=== PATIENT | male | born 1965 | race Caucasian/White ===

== ENCOUNTER 2019-12-17 09:41 | Emergency (ER) | payer MEDICARE, MEDICAID ==
[~2019-12-17] VITALS: Ht 193 cm; Wt 64.0 kg
[~2019-12-17 09:41] MED LIST: AMLO10TA8 PO; DULO60CA7 PO; FOLI-17 PO; GABA-827 PO; HYDR2TAB29 PO; INSU100V8 SQ; LIPA1CAP PO; OMEP40CA42 PO; ONDA4TAB13 SL
--- NOTE | 2019-12-17 09:41 | NUR ---
PATIENT BIB [facility] WITH C/O GENERALIZED ABD PAIN, N/V AND DIZZINESS X12 HOURS. PATIENT WAS HOSPITALIZED RECENTLY AND HAD A STENT REMOVAL AND REPLACEMENT BETWEEN THE PANCREAS AND STOMACH 12/16/2019. PATIENT DISCHARGED YESTERDAY AND ATE A SMALL MEAL AFTER WHICH HE STARTED EXPERIENCING ABD PAIN 12/16/2019 AROUND 7 PM. EN ROUTE TO THE HOSPITAL PATIENT WAS GIVEN 250 NS, 100 MCG FENTANYL, AND 4 MG ZOFRAN BY EMS. PATIENT STATES HIS PAIN LEVEL NOW IS A 4/10, DOES NOT APPEAR TO BE ANY DISTRESS. PATIENT A&OX4, VITAL SIGNS WNL, NO FURTHER COMPLAINTS.
--- NOTE | 2019-12-17 10:18 | NUR ---
U/S TECH IN ROOM.
[2019-12-17 10:56] LABS: BASOPHILS # (AUTO) 0.03 x10^3/uL (0-0.1); BASOPHILS % (AUTO) 0 % (0-1); EOSINOPHILS % (AUTO) 0 % (1-7); LYMPHOCYTES # (AUTO) 1.12 x10^3/uL (1-3.4); LYMPHOCYTES % (AUTO) 10 % (22-44); MD NO; MEAN CORPUSCULAR HEMOGLOBIN 27.8 pg (27.5-34.5); MEAN CORPUSCULAR HGB CONC 32.2 g/dL (33.2-36.2); MEAN CORPUSCULAR VOLUME 86.1 fL (81-97); MONOCYTES # (AUTO) 0.23 x10^3/uL (0.2-0.8); MONOCYTES % (AUTO) 2 % (2-9); NEUTROPHILS # (AUTO) 9.83 x10^3/uL (1.8-6.8); NEUTROPHILS % (AUTO) 88 % (42-75); PLATELET COUNT 377 x10^3/uL (130-400); RED BLOOD COUNT 4.74 x10^6/uL (4.38-5.82); RED CELL DISTRIBUTION WIDTH 17.7 % (9.4-14.8)
[2019-12-17] MEDS ORDERED: ONDANSETRON 2MG/ML, 2ML IVPush ONE (11:00)
[2019-12-17] MEDS ORDERED: HYDROmorphone 1 MG/ML, 1ML INJ ONE ×3 (11:00→16:23)
[2019-12-17] MEDS ORDERED: ONDANSETRON 2MG/ML, 2ML ONE (11:00)
[2019-12-17] MEDS ORDERED: SODIUM CHLORIDE FLUSH 10ML SYR IVF ONE (11:00)
[2019-12-17] MEDS: HYDROmorphone 2 MG/ML, 1ML IVPush PRN ×2 (11:03→13:37)
--- NOTE | 2019-12-17 11:07 | NUR ---
PATIENT C/O 10/21 ABD PAIN, MEDICATED WITH 4 MG IV ZOFRAN AND 0.5 MG IV DILAUDID. EXPLAINED NEED FOR URINE SAMPLE. NO FURTHER NEEDS AT THIS TIME.
[2019-12-17 11:12] LABS: ALANINE AMINOTRANSFERASE 41 U/L (12-78); ALBUMIN 3.2 g/dL (3.4-5.0); ANION GAP 13 mmol/L (5-15); CALCIUM 8.7 mg/dL (8.5-10.1); CHLORIDE 103 mmol/L (98-107); CREATININE 0.68 mg/dL (0.7-1.3)
[2019-12-17 11:15] LABS: ALKALINE PHOSPHATASE 320 U/L (45-117); BILIRUBIN,TOTAL 0.7 mg/dL (0.2-1.0); TOTAL PROTEIN 6.8 g/dL (6.4-8.2)
[2019-12-17] MEDS ORDERED: OMNIPAQUE 350 MG/ML, 100ML BOTTLE ONE (12:01)
--- NOTE | 2019-12-17 12:25 | NUR ---
BREAK RN: PT RESTING ON GURNEY. NADN. VSS. PT AWARE OF NEED FOR UA. URINAL LEFT W/ PT.
--- NOTE | 2019-12-17 12:34 | NUR ---
BREAK RN: DIEGO COLLECTED, LABELED, AND SENT TO LAB.
[2019-12-17 12:44] LABS: MICROSCOPIC INDICATED
--- NOTE | 2019-12-17 13:43 | NUR ---
PT MEDICATED WITH DILAUDID. WILL CONTINUE TO MONITOR.
[2019-12-17] MEDS ORDERED: SODIUM CHLORIDE 0.9% 1,000 ML IV ONE (16:27)
[2019-12-17] MEDS ORDERED: SODIUM CHLORIDE 0.9% 1,000ML IVBOLUS ONE (16:30)
[2019-12-17] MEDS ORDERED: HYDROmorphone 2 MG/ML, 1ML IVPush PRN (16:30)
--- NOTE | 2019-12-17 16:34 | NUR ---
PATIENT WAS REQUESTING MORE PAIN MEDS. DR. CMINTOSH NOTIFIED. PT MEDICATED PER JUL. PT WAS COMPLAINING OF THIRST AND ASKING ABOUT IV FLUID. DR. MCINTOSH NOTIFIED. NS BOLUS STARTED.
[2019-12-17 17:59] VITALS: BP 148/96
--- NOTE | 2019-12-17 18:12 | NUR ---
Patient and significant other given discharge instructions and they have confirmed that they understand the instructions. Patient wheeled out in stable condition by this RN to vehicle.
== END 2019-12-17 18:06 ==
LOC: ED 09:45
DX: R10.11 Right upper quadrant pain (principal); R10.13 Epigastric pain; R11.2 Nausea with vomiting, unspecified; R50.9 Fever, unspecified
CPT/HCPCS: 36415; 74177; 75989; 76700; 80053; 81001; 83690; 85025; 96361; 96374; 96375; 96376; 99285; J1170; J2405; J7030; Q9967

== ENCOUNTER 2019-12-18 07:38 | Inpatient (IN) | payer MEDICARE, MEDICAID ==
[~2019-12-18] VITALS: Ht 193 cm; Wt 76.1 kg
--- NOTE | 2019-12-18 07:41 | NUR ---
PATIENT BIB [facility] FOR ABD PAIN AND N/V SINCE LAST NIGHT. PATIENT WAS IN ED YESTERDAY FOR THE SAME ISSUE WHICH STARTED AFTER A STENT REMOVAL AND REPLACEMENT 12/16/2019. PATIENT STATES AFTER BEING DISCHARGED YESTERDAY HE WENT HOME AND TRIED TO DRINK SOME FLUIDS AND GOT SICK. HE WAS UP ALL NIGHT "DRY HEAVING." EN ROUTE TO HOSPITAL EMS GAVE 550 MLS OF NS, 4 MG IV ZOFRAN AND 4 MG IV MORPHINE. PATIENT'S BLOOD GLUCOSE WAS 438 IN THE AMBULANCE. PER PATIENT HE HASN'T BEEN ABLE TO TAKE HIS INSULIN FOR SEVERAL DAYS. PATIENT IS A&OX4, STATES HIS PAIN LEVEL NOW IS 4/10, HE STATES HE WANTS TO HOLD OFF ON PAIN MEDICINE RIGHT NOW. SPOUSE AT BEDSIDE.
[2019-12-18] MEDS ORDERED: SODIUM CHLORIDE 0.9% 1,000 ML IV ONE ×2 (07:53→11:00)
[2019-12-18] MEDS ORDERED: ONDANSETRON 2MG/ML, 2ML ONE (08:00)
[2019-12-18] MEDS ORDERED: SODIUM CHLORIDE 0.9% 1,000ML IVBOLUS ONE ×3 (08:00→10:00)
[2019-12-18] MEDS ORDERED: PLEASE ENTER HEIGHT AND WEIGHT MC SCH (08:00)
[2019-12-18] MEDS ORDERED: SODIUM CHLORIDE FLUSH 10ML SYR IVF ONE (08:00)
[2019-12-18] MEDS ORDERED: ONDANSETRON 2MG/ML, 2ML IVPush ONE (08:00)
[2019-12-18] MEDS ORDERED: HYDROmorphone 1 MG/ML, 1ML INJ ONE ×3 (08:04→17:27)
[2019-12-18] MEDS: HYDROmorphone 1 MG/ML, 1ML INJ IVPush PRN ×2 (08:05→20:50)
--- NOTE | 2019-12-18 08:14 | NUR ---
1000 mL bolus started, and patient medicated per eMAR. Instructed patient on need for urine sample.
[2019-12-18 08:24] LABS: ACETONE, SERUM Large (80mg/dL) (Negative)
[2019-12-18 08:28] LABS: ALANINE AMINOTRANSFERASE 40 U/L (12-78); ALBUMIN 3.3 g/dL (3.4-5.0); ANION GAP 19 mmol/L (5-15); CALCIUM 8.6 mg/dL (8.5-10.1); CHLORIDE 107 mmol/L (98-107); CREATININE 0.95 mg/dL (0.7-1.3)
[2019-12-18 08:31] LABS: ALKALINE PHOSPHATASE 297 U/L (45-117); BILIRUBIN,TOTAL 0.7 mg/dL (0.2-1.0)
[2019-12-18 08:36] LABS: MD YES; MEAN CORPUSCULAR HEMOGLOBIN 28.1 pg (27.5-34.5); MEAN CORPUSCULAR HGB CONC 32.2 g/dL (33.2-36.2); MEAN CORPUSCULAR VOLUME 87.2 fL (81-97); MEAN PLATELET VOLUME 8.9 fL (7.4-10.4); PLATELET COUNT 335 x10^3/uL (130-400); RED BLOOD COUNT 5.02 x10^6/uL (4.38-5.82); RED CELL DISTRIBUTION WIDTH 17.5 % (9.4-14.8)
[2019-12-18 08:37] LABS: BAND#(MANUAL) 0.66 x10^3/uL; BANDS%(MANUAL) 2 % (0-7); LYMPH#(MANUAL) 0.33 x10^3/uL (1-3.4); LYMPHS% (MANUAL) 1 % (22-44); MONOS#(MANUAL) 0.99 x10^3/uL (0.3-2.7); MONOS% (MANUAL) 3 % (2-9); SEG#(MANUAL) 31.11 x10^3/uL (1.8-6.8); SEGS% (MANUAL) 94 % (42-75)
[2019-12-18 08:38] LABS: <PLATELET ESTIMATE> ADEQUATE; <PLT MORPHOLOGY> NORMAL PLT MORPH; <RBC MORPHOLOGY> NORMAL
--- NOTE | 2019-12-18 08:58 | NUR ---
URINE SAMPLE COLLECTED AND SENT, PATIENT STATES PAIN LEVEL IS 4/10. NO FURTHER NEEDS AT THIS TIME.
[2019-12-18] MEDS ORDERED: METRONIDAZOLE PMX 500MG/100ML 100 ML IVPB ONE (09:00)
[2019-12-18] MEDS ORDERED: CEFEPIME 2 GM in DEXTROSE 5% 100 ML IVPB ONE (09:00)
[2019-12-18] MEDS ORDERED: METRONIDAZOLE PMX 500MG/100ML 100 ML ONE (09:18)
--- NOTE | 2019-12-18 09:20 | NUR ---
BLOOD CULTURES DRAWN BY LAB, ABX STARTED AFTER COLLECTION.
[2019-12-18 09:22] LABS: MICROSCOPIC AUTO
--- NOTE | 2019-12-18 09:44 | NUR ---
Pt to imaging
[2019-12-18] MEDS ORDERED: OMNIPAQUE 350 MG/ML, 100ML BOTTLE ONE (09:59)
[2019-12-18] MEDS ORDERED: INSULIN REGULAR 100 UNITS/ML, 3ML VIAL SQ-INSULIN ONE ×2 (10:00→10:30)
[2019-12-18] MEDS ORDERED: INSULIN SINGLE DOSE, ER ONE ×2 (10:02→10:04)
--- NOTE | 2019-12-18 10:06 | NUR ---
PATIENT RESTING COMFORTABLY IN BED, VITAL SIGNS WITHIN NORMAL LIMITS. SECOND 1L BOLUS STARTED.
--- NOTE | 2019-12-18 10:23 | NUR ---
INSULIN REQUESTED FROM PHARMACY.
--- NOTE | 2019-12-18 11:02 | NUR ---
DR. STEVEN AT BEDSIDE FOR EVALUATION.
[2019-12-18 11:11] LABS: TROPONIN I < 0.015 ng/mL (0.000-0.045)
[2019-12-18] MEDS: SODIUM CHLORIDE 0.9% 1,000 ML IV SCH ×3 (11:13→21:13)
[2019-12-18] MEDS ORDERED: ONDANSETRON ODT 4 MG PO PRN (11:30)
[2019-12-18] MEDS ORDERED: DEXTROSE 50%, 50ML SYRINGE IVPush PRN (11:30)
[2019-12-18] MEDS ORDERED: LABETALOL 5MG/ML, 20ML IVPush PRN (11:30)
[2019-12-18] MEDS ORDERED: hydrALAzine 20 MG/ML, 1ML IVPush PRN (11:30)
[2019-12-18] MEDS ORDERED: DEXTROSE 4 GM TAB.CHEW PO PRN (11:30)
[2019-12-18] MEDS ORDERED: METOCLOPRAMIDE 5 MG/ML, 2ML IV PRN (11:30)
[2019-12-18] MEDS ORDERED: SODIUM CHLORIDE FLUSH 10ML SYR IVF PRN (11:30)
[2019-12-18] MEDS ORDERED: GLUCAGON 1 MG IM PRN (11:30)
[2019-12-18] MEDS ORDERED: OXYcodone IR 5MG TABLET PO PRN (11:30)
[2019-12-18] MEDS ORDERED: ENOXAPARIN 40 MG/0.4 ML ONE (11:34)
[2019-12-18 12:00] LABS: ANION GAP 15 mmol/L (5-15); CALCIUM 8.2 mg/dL (8.5-10.1); CHLORIDE 112 mmol/L (98-107); CREATININE 1.01 mg/dL (0.7-1.3)
[2019-12-18] MEDS ORDERED: NICOTINE 14MG/24 HR PATCH.TD24 ONE (12:15)
[2019-12-18] MEDS: NICOTINE 14MG/24 HR PATCH.TD24 TD SCH (12:18)
[2019-12-18] MEDS: ENOXAPARIN 40 MG/0.4 ML SQ SCH (12:18)
[2019-12-18] MEDS: MEROPENEM 1 GM in SODIUM CHLORIDE 0.9% 100 ML IV SCH ×2 (12:27→23:07)
--- NOTE | 2019-12-18 12:42 | NUR ---
2ND IV STARTED, PATIENT RESTING IN GURNEY, NO C/O PAIN AT THIS TIME.
[2019-12-18] MEDS: REGULAR INSULIN 100 UNITS in SODIUM CHLORIDE 0.9% 99 ML IV PRN ×5 (13:15→18:37)
--- NOTE | 2019-12-18 13:15 | NUR ---
INSULIN DRIP STARTED AT 2 UNITS/HR PER PROTOCOL. NEXT GLUCOSE CHECK AT 1415.
[2019-12-18] MEDS: HYDROmorphone 2 MG/ML, 1ML IVPush PRN ×2 (14:05→17:33)
--- NOTE | 2019-12-18 14:06 | NUR ---
Note undone in [facility] - 12/18/19 at 1426 by [email or web address] PATIENT C/O 09/20 ABD PAIN, MEDICATED PER eMAR. POC BLOOD GLUCOSE IS 270. INSULIN DRIP TITRATED PER PROTOCOL. Addendum: 12/18/19 at 1423 by [email or web address] Amendment undone in [facility] - 12/18/19 at 1426 by [email or web address] NO TITRATION NEEDED ON INSULIN DRIP, CONTINUE RUNNING AT 2 UNITS/HR PER PROTOCOL.
--- NOTE | 2019-12-18 15:28 | NUR ---
POC GLUCOSE IS 213, PER PROTOCOL INSULIN DRIP TITRATED UP 1 UNIT. INUSLIN DRIP NOW RUNNING AT 4 UNITS/HR.
[2019-12-18 15:34] LABS: ANION GAP 8 mmol/L (5-15); CALCIUM 7.8 mg/dL (8.5-10.1); CHLORIDE 113 mmol/L (98-107); CREATININE 0.79 mg/dL (0.7-1.3)
[2019-12-18 15:39] LABS: TROPONIN I < 0.015 ng/mL (0.000-0.045)
[2019-12-18] MEDS ORDERED: GABAPENTIN 400 MG CAPSULE PO SCH (16:00)
--- NOTE | 2019-12-18 16:37 | NUR ---
PATIENT'S POC GLUCOSE 181, PER INSULIN PROTOCOL NO CHANGE TO BE MADE TO DRIP AT THIS TIME. INSULIN DRIP TO STAY AT CURRENT 4 UNITS/HR RATE, NEXT POC GLUCOSE AT 1730. PATIENT STATES PAIN LEVEL IS AT 3/10.
[2019-12-18] MEDS ORDERED: GABAPENTIN 300 MG CAPSULE ONE ×2 (16:43→20:31)
--- NOTE | 2019-12-18 16:43 | NUR ---
hospital bed requested for patient comfort.
--- NOTE | 2019-12-18 16:43 | NUR ---
Fluids requested from pharmacy.
[2019-12-18] MEDS ORDERED: GABAPENTIN 300 MG CAPSULE PO SCH (17:04)
[2019-12-18] MEDS: D5%-0.45NACL+KCL 20MEQ 1,000 ML IV SCH ×2 (17:13→19:13)
--- NOTE | 2019-12-18 17:16 | NUR ---
PATIENT'S GLUCOSE LESS THAN 200, PER PROTOCOL NS STOPPED AND D5+1/2NS+20mEq KCL HUNG AT 125mLs/hr.
--- NOTE | 2019-12-18 18:38 | NUR ---
Patient's pain level down to 3/10. Insulin drip titrated down to 1 unit/hr due to blood glucose of 100. No further needs at this time.
[2019-12-18 19:37] LABS: ANION GAP 6 mmol/L (5-15); CALCIUM 8.5 mg/dL (8.5-10.1); CHLORIDE 115 mmol/L (98-107); CREATININE 0.74 mg/dL (0.7-1.3)
[2019-12-18] MEDS ORDERED: PANTOPRAZOLE 40 MG IV ONE (20:31)
[2019-12-18] MEDS: GABAPENTIN 300 MG CAPSULE PO SCH (20:42)
[2019-12-18] MEDS: PANTOPRAZOLE 40 MG IV IVPush SCH (20:42)
--- NOTE | 2019-12-18 20:42 | NUR ---
DREW CALLED AND REQUESTING UPDATE. [phone]
[2019-12-18] MEDS ORDERED: HYDROmorphone 2 MG/ML, 1ML ONE (20:45)
[2019-12-18] MEDS: SODIUM CHLORIDE FLUSH 10ML SYR IVF SCH (21:00)
[2019-12-18 22:22] LABS: ANION GAP 6 mmol/L (5-15); CALCIUM 7.9 mg/dL (8.5-10.1); CHLORIDE 113 mmol/L (98-107); CREATININE 0.61 mg/dL (0.7-1.3)
[2019-12-18 22:25] LABS: TROPONIN I < 0.015 ng/mL (0.000-0.045)
--- NOTE | 2019-12-18 22:29 | NUR ---
POSITIVE BLOOD CULTURE ANEORBIC BOTTLE GRAM NEG ROBS BOTH SETS,
--- NOTE | 2019-12-18 22:35 | NUR ---
Hospitalist aware of positive blood cultures and chart reviewed, continue with abx
--- NOTE | 2019-12-18 22:58 | NUR ---
3RD IV STARTED FOR IV ABX
[2019-12-19] MEDS: HYDROmorphone 2 MG/ML, 1ML IVPush PRN ×6 (00:15→20:56)
[2019-12-19 01:07] VITALS: BP 160/97
[2019-12-19] MEDS: D5%-0.45NACL+KCL 20MEQ 1,000 ML IV SCH (01:26)
[2019-12-19] MEDS: SODIUM CHLORIDE 0.9% 1,000 ML IV SCH (01:27)
[2019-12-19 04:00] VITALS: BP 154/92
[2019-12-19 04:52] LABS: ANION GAP 7 mmol/L (5-15); CALCIUM 7.9 mg/dL (8.5-10.1); CHLORIDE 112 mmol/L (98-107)
[2019-12-19] MEDS: MEROPENEM 1 GM in SODIUM CHLORIDE 0.9% 100 ML IV SCH ×3 (04:56→20:56)
[2019-12-19 05:24] LABS: BASOPHILS # (AUTO) 0.02 x10^3/uL (0-0.1); BASOPHILS % (AUTO) 0 % (0-1); EOSINOPHILS # (AUTO) 0.31 x10^3/uL (0-0.4); EOSINOPHILS % (AUTO) 2 % (1-7); LYMPHOCYTES % (AUTO) 8 % (22-44); MD NO; MEAN CORPUSCULAR VOLUME 87.4 fL (81-97); MEAN PLATELET VOLUME 8.4 fL (7.4-10.4); MONOCYTES # (AUTO) 0.76 x10^3/uL (0.2-0.8); MONOCYTES % (AUTO) 5 % (2-9); NEUTROPHILS # (AUTO) 13.13 x10^3/uL (1.8-6.8); NEUTROPHILS % (AUTO) 85 % (42-75); PLATELET COUNT 232 x10^3/uL (130-400); RED BLOOD COUNT 4.69 x10^6/uL (4.38-5.82); RED CELL DISTRIBUTION WIDTH 17.5 % (9.4-14.8)
[2019-12-19] MEDS: PANTOPRAZOLE 40 MG IV IVPush SCH ×2 (07:52→20:56)
[2019-12-19] MEDS: GABAPENTIN 300 MG CAPSULE PO SCH ×3 (07:52→20:57)
[2019-12-19] MEDS: DULOXETINE 30 MG CAPSULE.DR PO SCH (07:52)
[2019-12-19] MEDS: FOLIC ACID 1 MG TABLET PO SCH (07:52)
[2019-12-19] MEDS: AMLODIPINE 10 MG TAB PO SCH (07:52)
[2019-12-19] MEDS: SODIUM CHLORIDE FLUSH 10ML SYR IVF SCH ×2 (07:53→20:58)
[2019-12-19] MEDS ORDERED: INSULIN GLARGINE 100 UNITS/ML, PEN SQ-INSULIN ONE ×2 (08:30)
[2019-12-19 08:53] LABS: ANION GAP 6 mmol/L (5-15); CALCIUM 8.3 mg/dL (8.5-10.1); CHLORIDE 109 mmol/L (98-107); CREATININE 0.54 mg/dL (0.7-1.3)
[2019-12-19] MEDS ORDERED: INSULIN LISPRO 100 UNIT/ML, 3ML VIAL SQ-INSULIN SCH (11:00)
[2019-12-19] MEDS: PANCRELIPASE 24,000 CAPSULE.DR PO SCH ×2 (11:32→17:12)
[2019-12-19] MEDS: ENOXAPARIN 40 MG/0.4 ML SQ SCH (11:32)
[2019-12-19] MEDS: INSULIN LISPRO 100 UNITS/ML, PEN SQ-INSULIN SCH ×4 (11:32→20:57)
[2019-12-19] MEDS: NICOTINE 14MG/24 HR PATCH.TD24 TD SCH (11:39)
[2019-12-19 12:19] LABS: ANION GAP 9 mmol/L (5-15); CALCIUM 8.6 mg/dL (8.5-10.1); CHLORIDE 107 mmol/L (98-107)
[2019-12-19 12:20] LABS: CREATININE 0.45 mg/dL (0.7-1.3)
[2019-12-19 14:48] VITALS: BP 130/83
[2019-12-19 19:10] VITALS: BP 157/90
[2019-12-19] MEDS: INSULIN GLARGINE 100 UNITS/ML, PEN SQ-INSULIN SCH (20:58)
[2019-12-20 00:09] VITALS: BP 128/86
[2019-12-20] MEDS: HYDROmorphone 2 MG/ML, 1ML IVPush PRN ×5 (01:29→20:06)
[2019-12-20] MEDS: MEROPENEM 1 GM in SODIUM CHLORIDE 0.9% 100 ML IV SCH ×3 (04:13→20:05)
[2019-12-20 04:51] LABS: BASOPHILS # (AUTO) 0.03 x10^3/uL (0-0.1); BASOPHILS % (AUTO) 0 % (0-1); EOSINOPHILS # (AUTO) 0.19 x10^3/uL (0-0.4); EOSINOPHILS % (AUTO) 2 % (1-7); LYMPHOCYTES # (AUTO) 1.26 x10^3/uL (1-3.4); LYMPHOCYTES % (AUTO) 13 % (22-44); MD NO; MEAN CORPUSCULAR HEMOGLOBIN 27.8 pg (27.5-34.5); MEAN CORPUSCULAR HGB CONC 32.1 g/dL (33.2-36.2); MEAN CORPUSCULAR VOLUME 86.7 fL (81-97); MEAN PLATELET VOLUME 7.9 fL (7.4-10.4); MONOCYTES # (AUTO) 0.57 x10^3/uL (0.2-0.8); MONOCYTES % (AUTO) 6 % (2-9); NEUTROPHILS # (AUTO) 7.72 x10^3/uL (1.8-6.8); NEUTROPHILS % (AUTO) 79 % (42-75); PLATELET COUNT 245 x10^3/uL (130-400); RED CELL DISTRIBUTION WIDTH 17.8 % (9.4-14.8)
[2019-12-20 04:58] LABS: ALANINE AMINOTRANSFERASE 30 U/L (12-78); ALBUMIN 2.9 g/dL (3.4-5.0); ANION GAP 7 mmol/L (5-15); CALCIUM 8.4 mg/dL (8.5-10.1); CHLORIDE 106 mmol/L (98-107); CREATININE 0.44 mg/dL (0.7-1.3)
[2019-12-20 05:00] LABS: ALKALINE PHOSPHATASE 237 U/L (45-117); BILIRUBIN,TOTAL 0.4 mg/dL (0.2-1.0); TOTAL PROTEIN 6.3 g/dL (6.4-8.2)
[2019-12-20] MEDS: DULOXETINE 30 MG CAPSULE.DR PO SCH (07:41)
[2019-12-20] MEDS: AMLODIPINE 10 MG TAB PO SCH (07:41)
[2019-12-20] MEDS: GABAPENTIN 300 MG CAPSULE PO SCH ×3 (07:41→20:05)
[2019-12-20] MEDS: PANTOPRAZOLE 40 MG IV IVPush SCH ×2 (07:41→20:05)
[2019-12-20] MEDS: PANCRELIPASE 24,000 CAPSULE.DR PO SCH ×3 (07:41→15:49)
[2019-12-20] MEDS: FOLIC ACID 1 MG TABLET PO SCH (07:41)
[2019-12-20] MEDS: SODIUM CHLORIDE FLUSH 10ML SYR IVF SCH ×2 (07:42→20:53)
[2019-12-20] MEDS: INSULIN LISPRO 100 UNITS/ML, PEN SQ-INSULIN SCH ×7 (07:42→20:06)
[2019-12-20] MEDS: INSULIN GLARGINE 100 UNITS/ML, PEN SQ-INSULIN SCH ×2 (07:45→20:06)
[2019-12-20 09:27] VITALS: BP 135/86
[2019-12-20] MEDS: NICOTINE 14MG/24 HR PATCH.TD24 TD SCH (12:14)
[2019-12-20] MEDS: ENOXAPARIN 40 MG/0.4 ML SQ SCH (12:14)
[2019-12-20 15:30] VITALS: BP 121/86
[2019-12-20 18:55] VITALS: BP 128/86
[2019-12-21 00:13] VITALS: BP 123/90
[2019-12-21] MEDS: HYDROmorphone 2 MG/ML, 1ML IVPush PRN ×3 (00:18→10:03)
[2019-12-21] MEDS: MEROPENEM 1 GM in SODIUM CHLORIDE 0.9% 100 ML IV SCH (04:09)
[2019-12-21 06:55] VITALS: BP 129/88
[2019-12-21] MEDS: INSULIN GLARGINE 100 UNITS/ML, PEN SQ-INSULIN SCH (08:24)
[2019-12-21] MEDS: INSULIN LISPRO 100 UNITS/ML, PEN SQ-INSULIN SCH ×4 (08:24→11:56)
[2019-12-21] MEDS: PANTOPRAZOLE 40 MG IV IVPush SCH (08:30)
[2019-12-21] MEDS: SODIUM CHLORIDE FLUSH 10ML SYR IVF SCH (08:31)
[2019-12-21] MEDS: FOLIC ACID 1 MG TABLET PO SCH (08:31)
[2019-12-21] MEDS: DULOXETINE 30 MG CAPSULE.DR PO SCH (08:31)
[2019-12-21] MEDS: AMLODIPINE 10 MG TAB PO SCH (08:31)
[2019-12-21] MEDS: GABAPENTIN 300 MG CAPSULE PO SCH (08:31)
[2019-12-21] MEDS: PANCRELIPASE 24,000 CAPSULE.DR PO SCH ×2 (08:34→11:28)
[2019-12-21] MEDS ORDERED: NICO-486 TD (10:43)
[2019-12-21] MEDS ORDERED: LEVO750T26 PO (11:20)
== END 2019-12-21 12:25 | disposition home or self-care (01) | DRG 638 ==
LOC: ED 08:03 → EDIP 11:47 → CCU 23:56 → 3N 12-19 13:07
PROVIDERS: ADMIT Hospitalist; ATTEND Internal Medicine
DX: E11.10 Type 2 diabetes mellitus with ketoacidosis without coma (principal); R64 Cachexia; K86.1 Other chronic pancreatitis; N13.30 Unspecified hydronephrosis; I10 Essential (primary) hypertension; G89.29 Other chronic pain; F12.90 Cannabis use, unspecified, uncomplicated; M54.9 Dorsalgia, unspecified; E11.42 Type 2 diabetes mellitus with diabetic polyneuropathy; B96.20 Unspecified Escherichia coli [E. coli] as the cause of diseases classified elsewhere; F17.210 Nicotine dependence, cigarettes, uncomplicated; K74.60 Unspecified cirrhosis of liver; Z68.20 Body mass index [BMI] 20.0-20.9, adult; Z88.0 Allergy status to penicillin; Z90.49 Acquired absence of other specified parts of digestive tract; Z79.4 Long term (current) use of insulin; Z79.82 Long term (current) use of aspirin; Z79.899 Other long term (current) drug therapy; Z83.3 Family history of diabetes mellitus
CPT/HCPCS: 36415; 71045; 74177; 80048; 80053; 81001; 82010; 82800; 82962; 83605; 83690; 83735; 84100; 84484; 85025; 87040; 87077; 87081; 87186; 93005; 99291; G0378; J1170; J1650; J1815; J2185; J2405; Q9967; C9113; J1817; J3480; J7030

== ENCOUNTER 2020-07-20 10:58 | Day surgery (SDC) | payer MEDICARE, MEDICAID ==
[~2020-07-20] VITALS: Ht 193 cm; Wt 78.0 kg
[~2020-07-20 10:58] MED LIST changes: +AMLO-211 PO; -AMLO10TA8 PO; +CYAN-27 PO; -FOLI-17 PO; +FOLI1TAB32 PO; +GABA600T7 PO; +INSU100I11 SC; +LEVO750T26 PO; +LIPA1CAP45 PO; +NICO-486 TD; +PROC10TA2 PO; +THIA100T27 PO; +magnesium PO
[2020-07-20 11:24] VITALS: BP 158/93
[2020-07-20] MEDS ORDERED: CHLORHEXIDINE 15 ML UDC MM ONE (11:30)
[2020-07-20] MEDS ORDERED: INSULIN REGULAR 100 UNITS/ML, 3ML VIAL SQ-INSULIN STA (11:43)
[2020-07-20] MEDS ORDERED: INSULIN SINGLE DOSE, ER ONE ×2 (11:49→12:36)
[2020-07-20] MEDS ORDERED: LACTATED RINGERS 1,000 ML IV SCH (12:00)
[2020-07-20] MEDS ORDERED: FENTANYL PF 250 MCG/5ML ONE (12:37)
[2020-07-20] MEDS ORDERED: PROPOFOL 10 MG/ML, 20ML ONE (13:02)
[2020-07-20] MEDS ORDERED: ROCURONIUM 10MG/ML,5ML ONE (13:02)
[2020-07-20] MEDS ORDERED: GLYCOPYRROLATE 0.2MG/1ML, 5ML ONE (13:02)
[2020-07-20] MEDS ORDERED: NEOSTIGMINE 1 MG/ML, 10ML ONE (13:02)
[2020-07-20] MEDS ORDERED: OMNIPAQUE 350 MG/ML, 50 ML BOTTLE ONE (13:59)
[2020-07-20] MEDS ORDERED: FENTANYL PF 100 MCG/2ML IV PRN (14:00)
[2020-07-20] MEDS ORDERED: ONDANSETRON 2MG/ML, 2ML IVPush PRN (14:00)
[2020-07-20] MEDS ORDERED: OXYcodone 5 MG/5 ML ORAL.SOL UDC PO PRN (14:00)
[2020-07-20] MEDS ORDERED: hydrALAzine 20 MG/ML, 1ML IV PRN (14:00)
[2020-07-20] MEDS ORDERED: MEPERIDINE/PF 25MG/0.5ML IVPush PRN (14:00)
[2020-07-20] MEDS ORDERED: LABETALOL 5MG/ML, 20ML IV PRN (14:00)
[2020-07-20] MEDS ORDERED: morphine SULFATE 10 MG/ML, 1ML IVPush PRN (14:00)
[2020-07-20] MEDS ORDERED: HYDROmorphone 1 MG/ML, 1ML INJ IVPush PRN (14:00)
[2020-07-20] MEDS ORDERED: INSULIN REGULAR 100 UNITS/ML, 3ML VIAL IVPush ONE ×2 (14:00)
== END 2020-07-20 16:55 | disposition home or self-care (01) ==
LOC: OUT 10:58
PROVIDERS: ATTEND Internal Medicine
DX: K86.0 Alcohol-induced chronic pancreatitis (principal); K86.2 Cyst of pancreas; K83.1 Obstruction of bile duct; K21.9 Gastro-esophageal reflux disease without esophagitis; I10 Essential (primary) hypertension; E11.9 Type 2 diabetes mellitus without complications; F12.90 Cannabis use, unspecified, uncomplicated; F17.210 Nicotine dependence, cigarettes, uncomplicated; Z20.822 Contact with and (suspected) exposure to COVID-19; Z79.4 Long term (current) use of insulin; Z79.891 Long term (current) use of opiate analgesic; Z79.899 Other long term (current) drug therapy; Z88.0 Allergy status to penicillin; Z90.49 Acquired absence of other specified parts of digestive tract
CPT/HCPCS: 43259; 43264; 43275; 43277; 74328; 82962; 87635; 93005; C1769; J1815; J2704; J2710; J3010; J7120; Q9967